=== PATIENT | male | born 2000 | race Caucasian/White ===

== ENCOUNTER 2020-03-30 11:44 | Emergency (ER) | payer OTHER ==
--- NOTE | 2020-03-30 12:31 | ED Physician Documentation ---
History of Present Illness - Stated complaint Stated Complaint: WEAKNESS - Chief complaint Chief Complaint: General - History obtained from History obtained from: Patient - Additonal information Additional information: 19-year-old male who is in the [employer] presents emerged department for 24 hours of generalized malaise feeling weak some diarrhea and gagging when he eats solid foods. He denies any fevers, cough chest pain. No focal abdominal tenderness. He is able to keep liquids down but is concerned because when he ate a bagel this morning he gagged. He is concerned that his electrolytes might be depleted and that he may need an IV infusion. denies pertinent pmh Review of Systems Constitutional: denies: Fever, Chills Eyes: reports: Reviewed and negative Ears: reports: Reviewed and negative Nose: reports: Reviewed and negative Throat: reports: Reviewed and negative Cardiac: reports: Reviewed and negative Respiratory: reports: Reviewed and negative GI: reports: Vomiting, Diarrhea. denies: Abdominal Pain, Nausea, Constipation, Hematemesis, Bloody / black stool : denies: Dysuria, Frequency, Hesitancy Skin: denies: Rash, Abrasion (s) Musculoskeletal: denies: Neck pain, Back pain Neurologic: reports: Reviewed and negative Psychiatric: reports: Reviewed and negative PD PAST MEDICAL HISTORY - Past Medical History Past Medical History: No - Present Medications Home Medications: Ambulatory Orders Medication Instructions Recorded Confirmed No Known Home Medications 03/30/20 03/30/20 - Allergies Allergies/Adverse Reactions: Allergies Allergy/AdvReac Type Severity Reaction Status Date / Time No Known Drug Allergies Allergy Verified 03/30/20 11:53 - Social History Does the pt smoke?: No Smoking Status: Never smoker PD ED PE NORMAL - General General: Alert and oriented X 3, No acute distress - HEENT HEENT: PERRL, Ears normal, Moist mucous membranes, Pharynx benign - Neck Neck: Supple, no meningeal sign, No adenopathy - Cardiac Cardiac: RRR, No murmur - Respiratory Respiratory: No respiratory distress, Clear bilaterally - Abdomen Abdomen: Normal bowel sounds, Soft, Non tender, Non distended - Back Back: No CVA TTP - Derm Derm: Normal color, Warm and dry, No rash - Neuro Neuro: Alert and oriented X 3, 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, No motor deficit, No sensory deficit Eye Opening: Spontaneous Motor: Obeys Commands Verbal: Oriented GCS Score: 15 Results - Vitals Vitals: Vital Signs - 24 hr 03/30/20 11:51 Temperature 36 C L Heart Rate 90 Respiratory 18 Rate Blood Pressure 144/90 H O2 Saturation 100 Oxygen O2 Source Room air PD MEDICAL DECISION MAKING - ED course Complexity details: reviewed results, re-evaluated patient, considered differential, d/w patient ED course: This is a well-appearing 19-year-old male presents the emergency department with 24 hours of fatigue, malaise a few watery stools and concerns that he might be electrolyte depleted. He is able to keep oral liquids down well but became concerned when he ate a bagel this morning and gagged. He does not have a sore throat and is Centor criteria is 0. Will defer strep testing. Cardiopulmonary exam is also unremarkable. No abdominal tenderness elicited. We discussed that the likely etiology of his symptoms is a viral enteritis. I did offer screening labs but felt that the yield on this would be relatively low. Patient ultimately declined. He was given about 500 mL of juice and water to drink in the emergency department which he did successfully. Recommend that he go home stay well-hydrated with liquids and in 24 hours to begin the brat diet if not improving he will return to the ER for a second look. COVID-19 screening is pending Departure - Departure Disposition: 01 Home, Self Care Clinical Impression: Malaise and fatigue Diarrhea Qualifiers: Diarrhea type: unspecified type Qualified Code(s): R19.7 - Diarrhea, unspecified Condition: Stable Record reviewed to determine appropriate education?: Yes Instructions: ED Diarrhea Viral, ED Diet Brat Expanded Comments: Fortino is we discussed the most likely cause of your fatigue, malaise and diarrhea is simply a viral gastroenteritis. In most otherwise healthy adults this resolves typically within 2 to 3 days. Because you are not vomiting when you drink liquids you can stay well-hydrated and make sure that your electrolytes remain normal simply by drinking Pedialyte or Gatorade mixed half with water. I do recommend that tomorrow morning you begin the BRAT diet as discussed. You have a Covid test pending. You need to self quarantine until the result is done and negative. Do not leave your house. Do not get near anybody. The results should be done in 48 to 72 hours. We will call with a positive result, the fastest way to get a negative result for confirmation though is to go to the hospital website at [email or web address], click on the my [facility] tab and sign up for the patient portal. If any friends or family get sick and would like to have a Covid test done, but do not have signs or symptoms that would necessitate being hospitalized, we encourage testing through our coronavirus swabbing station, call [phone] to schedule an appointment.
[2020-03-30 12:38] VITALS: BP 133/78
== END 2020-03-30 12:37 | disposition home or self-care (01) ==
LOC: ED 11:44
DX: R53.81 Other malaise (principal); R53.83 Other fatigue; Z20.822 Contact with and (suspected) exposure to COVID-19
CPT/HCPCS: 99283; 99284

== ENCOUNTER 2020-07-20 19:54 | Emergency (ER) | payer OTHER ==
[2020-07-20 20:38] LABS: BASOPHILS % (AUTO) 0.2 %; EOSINOPHILS % (AUTO) 0.1 %; HCT - HEMATOCRIT 53.1 % (42.0-52.0); HGB - HEMOGLOBIN 18.4 g/dL (14.0-18.0); LYMPHOCYTES % (AUTO) 5.7 %; MEAN CORPUSCULAR HEMOGLOBIN 30.9 pg (27.0-31.0); MEAN CORPUSCULAR HGB CONC 34.7 g/dL (32.0-36.0); MEAN CORPUSCULAR VOLUME 89.2 fL (80.0-94.0); MEAN PLATELET VOLUME 10.4 fL (7.4-11.4); MONOCYTES % (AUTO) 8.7 %; NEUTROPHILS % (AUTO) 84.9 %; PLT - PLATELET COUNT 377 10^3/uL (130-450); RED BLOOD COUNT 5.95 10^6/uL (4.70-6.10); RED CELL DISTRIBUTION WIDTH 12.9 % (12.0-15.0)
[2020-07-20 20:42] LABS: ABNORMAL LYMPHS % (MANUAL) 0 %
[2020-07-20 20:54] LABS: ALBUMIN 5.4 g/dL (3.2-5.5); ALBUMIN/GLOBULIN RATIO 1.3 (1.0-2.2); ALKALINE PHOSPHATASE 79 IU/L (42-121); ALT ALANINE AMINOTRANSFERASE 24 IU/L (10-60); AST ASPARTATE AMINOTRANSFERASE 30 IU/L (10-42); BILIRUBIN,TOTAL 1.2 mg/dL (0.2-1.0); BUN - BLOOD UREA NITROGEN 43 mg/dL (6-20); CALCIUM 10.2 mg/dL (8.5-10.3); CARBON DIOXIDE - CO2 22 mmol/L (21-32); CHLORIDE 95 mmol/L (101-111); CREATININE 1.4 mg/dL (0.6-1.2); ETOH - ETHANOL < 5.0 mg/dL; GFR - MDRD 64 (>89); GLUCOSE 140 mg/dL (70-100); LIPASE 17 U/L (22-51); POTASSIUM 4.9 mmol/L (3.5-5.0); SODIUM 138 mmol/L (135-145); TOTAL PROTEIN 9.5 g/dL (6.7-8.2)
--- OUTSIDE RECORDS SUMMARY | 2020-07-20 20:57 | EXTERNAL MEDICAL SUMMARY RPT | Continuity of Care Document ---
:2000 Demographics Phone Unavailable Preferred Language Unknown Marital Status Unknown Anabaptism Affiliation Unknown Race Unknown Ethnic Group Unknown Author Organization [facility] Address [address] [phone] Phone Allergies Encounters Medications Problems Results
[2020-07-20 21:13] LABS: BAND NEUTROPHILS % (MANUAL) 4 %; LYMPHOCYTES # (MANUAL) 1.3 10^3/uL (1.5-3.5); LYMPHOCYTES % (MANUAL) 8 %; MONOCYTES # (MANUAL) 1.4 10^3/uL (0.0-1.0); NEUTROPHILS # (MANUAL) 13.3 10^3/uL (1.5-6.6)
[2020-07-20] MEDS ORDERED: PROMETHAZINE INJ 25 MG in SODIUM CHLORIDE 0.9% 50 ML IV STA (21:13)
[2020-07-20] MEDS ORDERED: SODIUM CHLORIDE 0.9% 1,000 ML IV STA (21:13)
[2020-07-20] MEDS ORDERED: LACTATED RINGERS 1,000 ML IV STA (21:13)
[2020-07-20 21:14] LABS: DIFFERENTIAL COMMENT MANUAL DIFFERENTIAL; PLATELET ESTIMATE, MANUAL NORMAL (130-450,000) (NORMAL); PLATELET MORPHOLOGY NORMAL APPEARANCE (NORMAL); RBC MORPHOLOGY (MULTIPLE) NORMAL APPEARANCE (NORMAL); WBC MORPHOLOGY (MULTIPLE) 1+ TOXIC GRANULATION (NORMAL)
--- NOTE | 2020-07-20 21:15 | ED Physician Documentation ---
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 Had a Covid exposure last Thursday, tested negative to days later. Last night became acutely ill with vomiting and diarrhea. Some blood in the diarrhea. He has stomach cramps and today felt like his joints locked up and then had carpopedal spasms while feeling anxious with chest pain. He is otherwise healthy. No recent travel. Review of Systems Constitutional: reports: Chills, Sweats. denies: Fever Nose: denies: Rhinorrhea / runny nose Throat: reports: Sore throat Respiratory: denies: Dyspnea, Cough GI: reports: Abdominal Pain, Nausea, Vomiting, Diarrhea PD PAST MEDICAL HISTORY - Past Medical History Past Medical History: No - Past Surgical History Past Surgical History: No - Present Medications Home Medications: Ambulatory Orders Medication Instructions Recorded Confirmed Dicyclomine [Bentyl] 1 - 2 tab PO QID PRN #20 cap 07/20/20 Loperamide [Imodium] 2 mg PO QID PRN #10 cap 07/20/20 Ondansetron Odt [Zofran] 4 mg TL Q6H PRN #10 tablet 07/20/20 - Allergies Allergies/Adverse Reactions: Allergies Allergy/AdvReac Type Severity Reaction Status Date / Time No Known Drug Allergies Allergy Verified 07/20/20 20:14 - Social History Does the pt smoke?: No Smoking Status: Never smoker Does the pt drink ETOH?: Yes Does the pt have substance abuse?: No - Immunizations Immunizations are current?: Yes - POLST Patient has POLST: No PD ED PE NORMAL - Vitals Vital signs reviewed: Yes - General General: Alert and oriented X 3, Other (Appears anxious) - HEENT HEENT: PERRL, EOMI, Other (Cobblestoning in the back of the throat, tonsils are normal) - Neck Neck: Supple, no meningeal sign, No bony TTP, No bruit - Cardiac Cardiac: RRR, No murmur - Respiratory Respiratory: No respiratory distress, Clear bilaterally - Abdomen Abdomen: Normal bowel sounds, Soft, Non tender - Back Back: No CVA TTP, No spinal TTP - Derm Derm: Normal color, Warm and dry - Extremities Extremities: No edema, No calf tenderness / cord - Neuro Neuro: Alert and oriented X 3, Normal speech Results - Vitals Vitals: Vital Signs - 24 hr 07/20/20 07/20/20 07/20/20 20:08 21:00 23:00 Temperature 36.9 C Heart Rate 123 H 116 H 97 Respiratory 32 H 19 18 Rate Blood Pressure 129/92 H 126/75 164/56 H O2 Saturation 100 97 98 Oxygen O2 Source Room air - Labs Labs: Laboratory Tests 07/20/20 07/20/20 20:30 20:30 WBC 16.0 H RBC 5.95 Hgb 18.4 H Hct 53.1 H MCV 89.2 MCH 30.9 MCHC 34.7 RDW 12.9 Plt Count 377 MPV 10.4 Neut # (Auto) Not Reportable Lymph # (Auto) Not Reportable Bremer # (Auto) Not Reportable Eos # (Auto) Not Reportable Baso # (Auto) Not Reportable Absolute Nucleated RBC Not Reportable Total Counted 100 Band Neuts % (Manual) 4 Abnorm Lymph % (Manual) 0 Nucleated RBC % Not Reportable Neutrophils # (Manual) 13.3 H Lymphocytes # (Manual) 1.3 L Monocytes # (Manual) 1.4 H Eosinophils # (Manual) 0.0 Basophils # (Manual) 0.0 Differential Comment MANUAL DIFFERENTIAL WBC Morphology 1+ TOXIC GRANULATION Platelet Estimate NORMAL (130-450,000) Platelet Morphology NORMAL APPEARANCE RBC Morph Micro Appear NORMAL APPEARANCE Sodium 138 Potassium 4.9 Chloride 95 L Carbon Dioxide 22 Anion Gap 21.0 H BUN 43 H Creatinine 1.4 H Estimated GFR (MDRD) 64 L Glucose 140 H Calcium 10.2 Total Bilirubin 1.2 H AST 30 ALT 24 Alkaline Phosphatase 79 Total Protein 9.5 H Albumin 5.4 Globulin 4.1 Albumin/Globulin Ratio 1.3 Lipase 17 L Ethyl Alcohol < 5.0 PD MEDICAL DECISION MAKING - ED course ED course: 19-year-old gentleman with Covid exposure presents with vomiting and diarrhea since last night. Then he got panicky and developed carpopedal spasms. The abdominal exam is benign. He does have a leukocytosis but no evidence of bacterial illness on exam. He is quite dry and hemoconcentrated though. He is feeling much better after Phenergan from a nausea perspective and appeared calmer. This was followed by some Maalox. Given 2L IVF here. Close return precautions were given, repeat Covid test was also sent. Departure - Departure Disposition: 01 Home, Self Care Clinical Impression: Vomiting Qualifiers: Vomiting type: unspecified Vomiting Intractability: non-intractable Nausea presence: with nausea Qualified Code(s): R11.2 - Nausea with vomiting, unspecified Diarrhea Qualifiers: Diarrhea type: presumed infectious Qualified Code(s): R19.7 - Diarrhea, unspecified Condition: Good Record reviewed to determine appropriate education?: Yes Instructions: ED Nausea Vomiting Prescriptions: Dicyclomine [Bentyl] 1 - 2 tab PO QID PRN #20 cap PRN Reason: Abdominal Pain Loperamide [Imodium] 2 mg PO QID PRN #10 cap PRN Reason: Diarrhea Ondansetron Odt [Zofran] 4 mg TL Q6H PRN #10 tablet PRN Reason: Nausea / Vomiting Comments: As discussed this is most likely a viral syndrome that should be short-lived. I am prescribing some medications to help with the nausea and cramps. Return if worse or if not better in the next 24 hours. You have a Covid test pending. You need to self quarantine until the result is done and negative. Do not leave your house. Do not get near anybody. The results should be done in 48 to 72 hours. We will call with a positive result, the fastest way to get a negative result for confirmation though is to go to the hospital website at [email or web address], click on the my [facility] tab and sign up for the patient portal. If any friends or family get sick and would like to have a Covid test done, but do not have signs or symptoms that would necessitate being hospitalized, we encourage testing through our coronavirus swabbing station, call [phone] to schedule an appointment.
[2020-07-20] MEDS ORDERED: PROMETHAZINE 25 MG/1 ML VIAL ONE (21:23)
[2020-07-20] MEDS ORDERED: MAG HYDROX/AL HYDROX/SIMETH 30 ML UDC PO STA (21:55)
[2020-07-20 23:42] VITALS: BP 124/78
== END 2020-07-20 23:35 | disposition home or self-care (01) ==
LOC: ED 19:54
DX: R11.2 Nausea with vomiting, unspecified (principal); R19.7 Diarrhea, unspecified; D72.829 Elevated white blood cell count, unspecified; Z20.822 Contact with and (suspected) exposure to COVID-19
CPT/HCPCS: 36415; 80053; 80320; 83690; 85025; 87635; 96365; 99284; A9270; J7040; J7120

== ENCOUNTER 2020-09-20 02:23 | Emergency (ER) | payer OTHER ==
[2020-09-20 02:36] VITALS: BP 142/86
--- NOTE | 2020-09-20 03:12 | ED Physician Documentation ---
PD HPI HEAD INJURY - Stated complaint Stated Complaint: HEAD LAC/HEAD INJURY - Chief complaint Chief Complaint: Laceration - History obtained from History obtained from: Patient - History of Present Illness Mechanism of head injury: Fell Where head injury occurred: Home Timing - onset: How many hours ago (2) Pain level now: 0 Location of injury: Top Associated symptoms: No: LOC, AMS, Neck pain Contributing factors: Intoxicated. 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 he denies LOC, denies headache. he is UTD on tetanus. Review of Systems Skin: reports: Laceration (s) Musculoskeletal: denies: Neck pain Neurologic: reports: Head injury. denies: Headache, LOC PD PAST MEDICAL HISTORY - Past Medical History Past Medical History: No - Past Surgical History Past Surgical History: No - Present Medications Home Medications: Ambulatory Orders Medication Instructions Recorded Confirmed No Known Home Medications 09/20/20 09/20/20 - Allergies Allergies/Adverse Reactions: Allergies Allergy/AdvReac Type Severity Reaction Status Date / Time No Known Drug Allergies Allergy Verified 09/20/20 02:36 - Social History Does the pt smoke?: No Smoking Status: Never smoker Does the pt drink ETOH?: Yes ETOH Use: Beer Does the pt have substance abuse?: No - Immunizations Immunizations are current?: Yes - POLST Patient has POLST: No PD ED PE NORMAL - Vitals Vital signs reviewed: Yes - General General: Alert and oriented X 3, No acute distress, Well developed/nourished - HEENT HEENT: PERRL, EOMI - Neck Neck: No bony TTP PD ED PE EXPANDED - HEENT HEENT Visual: 1 - laceration (2 cm length laceration without bony tenderness) Results - Vitals Vitals: Oxygen O2 Source Room air Procedures - Laceration (location) Scalp Length in cm: 2 Wound type: Linear, Into subcut fat, Clean Anesthesia: Lidocaine 1%, With bicarb Wound preparation: Chlorhexadine, Irrigated copiously NS, Wound explored Skin layer closure: Mary Lou (4 mary lou placed) Other: Patient tolerated well, No complications, Tetanus UTD PD MEDICAL DECISION MAKING - ED course Complexity details: considered differential, d/w patient ED course: presents with scalp laceration after head injury, struck head against a wall after he lost balance upon standing from sitting position. Scalp laceration rep aired with mary lou and discharged home in NAD Departure - Departure Disposition: 01 Home, Self Care Clinical Impression: Laceration Condition: Good Instructions: ED Laceration Scalp Stitch Or Stap Follow-Up: SUSHMA SU MD [Primary Care Provider] - (one week for staple removal ) Discharge Date/Time: 09/20/20 03:49
[2020-09-20] MEDS ORDERED: BUFFERED LIDOCAINE 10 ML SYRINGE SUBQ STA (03:19)
[2020-09-20] MEDS ORDERED: BACITRACIN ZINC OINT 1 PACKET TOP STA (03:37)
== END 2020-09-20 03:49 | disposition home or self-care (01) ==
LOC: ED 02:23
DX: S01.01XA Laceration without foreign body of scalp, initial encounter (principal); W18.30XA Fall on same level, unspecified, initial encounter; W22.8XXA Striking against or struck by other objects, initial encounter; Y92.009 Unspecified place in unspecified non-institutional (private) residence as the place of occurrence of the external cause
CPT/HCPCS: 12001; 99281; 99282; A9270

== ENCOUNTER 2021-03-05 08:00 | Outpatient (CLI) | payer OTHER | END 2021-03-05 23:59 | LOC: LAB 08:00 | PROVIDERS: ATTEND Physician Assistant Medical | DX: U07.1 COVID-19 (principal) ==

== ENCOUNTER 2022-08-19 19:17 | Emergency (ER) | payer OTHER ==
--- NOTE | 2022-08-19 19:58 | ED Physician Documentation ---
PD HPI ABD PAIN - Stated complaint Stated Complaint: VOMIT/ABD PX - Chief complaint Chief Complaint: Abd Pain - History obtained from History obtained from: Patient - Additional information Additional information: Previously healthy 21-year-old gentleman got abruptly ill this morning with vomiting, diarrhea, abdominal and back pain. No known sick contacts or recent travel. No fever. No blood from either end. PD PAST MEDICAL HISTORY - Past Surgical History Past Surgical History: No - Present Medications Home Medications: Ambulatory Orders Medication Instructions Recorded Confirmed Loperamide [Imodium] 2 mg PO QID PRN #10 cap 08/19/22 Ondansetron Odt [Zofran] 4 mg TL Q6H PRN #10 tablet 08/19/22 - Allergies Allergies/Adverse Reactions: Allergies Allergy/AdvReac Type Severity Reaction Status Date / Time No Known Drug Allergies Allergy Verified 08/19/22 19:32 - Social History Does the pt smoke?: No Smoking Status: Never smoker Does the pt drink ETOH?: Yes Does the pt have substance abuse?: No - Immunizations Immunizations are current?: Yes - POLST Patient has POLST: No PD ED PE NORMAL - Vitals Vital signs reviewed: Yes - General General: Alert and oriented X 3, Other (He appears uncomfortable but nontoxic) - Cardiac Cardiac: RRR, No murmur - Respiratory Respiratory: No respiratory distress, Clear bilaterally - Abdomen Abdomen: Other (Hyperactive bowel sounds with mild tenderness, if anything most marked in the left lower quadrant. No surgical signs.) - Back Back: No spinal TTP - Derm Derm: No rash - Neuro Neuro: Alert and oriented X 3, Normal speech Results - Vitals Vitals: Vital Signs - 24 hr 08/19/22 19:28 Temperature 37.4 C Heart Rate 100 Respiratory 20 Rate Blood Pressure 127/69 O2 Saturation 98 Oxygen O2 Source Room air - Labs Labs: Laboratory Tests 08/19/22 08/19/22 08/19/22 19:40 20:01 20:01 WBC 8.8 RBC 5.57 Hgb 16.9 Hct 48.9 MCV 87.8 MCH 30.3 MCHC 34.6 RDW 12.3 Plt Count 289 MPV 9.2 Neut # (Auto) 7.8 H Lymph # (Auto) 0.3 L [place] # (Auto) 0.7 Eos # (Auto) 0.0 Baso # (Auto) 0.0 Absolute Nucleated RBC 0.00 Nucleated RBC % 0.0 Sodium 136 Potassium 4.0 Chloride 106 Carbon Dioxide 16 L Anion Gap 14.0 H BUN 21 H Creatinine 0.9 Estimated GFR (MDRD) 105 Glucose 124 H Calcium 9.2 Total Bilirubin 1.3 H AST 24 ALT 25 Alkaline Phosphatase 67 Total Protein 8.6 H Albumin 4.8 Globulin 3.8 Albumin/Globulin Ratio 1.3 Lipase 24 Urine Color YELLOW Urine Clarity CLEAR Urine pH 5.5 Ur Specific [place] >=1.030 H Urine Protein NEGATIVE Urine Glucose (UA) NEGATIVE Urine Ketones 15 H Urine Occult Blood NEGATIVE Urine Nitrite NEGATIVE Urine Bilirubin NEGATIVE Urine Urobilinogen 0.2 (NORMAL) Ur Leukocyte Esterase NEGATIVE Ur Microscopic Review NOT INDICATED Urine Culture Comments NOT INDICATED Urine Opiates Screen NEGATIVE Ur Oxycodone Screen NEGATIVE Urine Methadone Screen NEGATIVE Ur Propoxyphene Screen NEGATIVE Ur Barbiturates Screen NEGATIVE Ur Tricyclics Screen NEGATIVE Ur Phencyclidine Scrn NEGATIVE Ur Amphetamine Screen NEGATIVE U Methamphetamines Scrn NEGATIVE U Benzodiazepines Scrn NEGATIVE Urine Cocaine Screen NEGATIVE U Cannabinoids Screen NEGATIVE PD Medical Decision Making - ED course ED course: 21-year-old gentleman with syndrome consistent with viral gastroenteritis. After the administration of IV fluids, Reglan, Toradol, and Imodium he felt much better. Review of lab work showed normal CBC. CMP showing low bicarb consistent with dehydration, urinalysis with some small ketones and high specific gravity, also consistent with dehydration. He passed a p.o. challenge here. Departure - Departure Disposition: 01 Home, Self Care Clinical Impression: Gastroenteritis Condition: Good Record reviewed to determine appropriate education?: Yes Instructions: ED Gastroenteritis Viral Prescriptions: Loperamide [Imodium] 2 mg PO QID PRN #10 cap PRN Reason: Diarrhea Ondansetron Odt [Zofran] 4 mg TL Q6H PRN #10 tablet PRN Reason: Nausea / Vomiting Comments: Return in 24 hours if not better, anytime if worse. Forms: Activity restrictions
[2022-08-19 20:06] LABS: BASOPHILS % (AUTO) 0.3 %; HCT - HEMATOCRIT 48.9 % (42.0-52.0); HGB - HEMOGLOBIN 16.9 g/dL (14.0-18.0); LYMPHOCYTES # (AUTO) 0.3 10^3/uL (1.5-3.5); LYMPHOCYTES % (AUTO) 3.3 %; MEAN CORPUSCULAR HEMOGLOBIN 30.3 pg (27.0-31.0); MEAN CORPUSCULAR HGB CONC 34.6 g/dL (32.0-36.0); MEAN CORPUSCULAR VOLUME 87.8 fL (80.0-94.0); MEAN PLATELET VOLUME 9.2 fL (7.4-11.4); MONOCYTES # (AUTO) 0.7 10^3/uL (0.0-1.0); MONOCYTES % (AUTO) 7.7 %; NEUTROPHILS # (AUTO) 7.8 10^3/uL (1.5-6.6); NEUTROPHILS % (AUTO) 88.6 %; PLT - PLATELET COUNT 289 10^3/uL (130-450); RED BLOOD COUNT 5.57 10^6/uL (4.70-6.10); RED CELL DISTRIBUTION WIDTH 12.3 % (12.0-15.0); WHITE BLOOD COUNT 8.8 x10^3/uL (4.8-10.8)
[2022-08-19 20:12] LABS: MUDS CUTOFF CONCENTRATIONS CUTOFF CONC BELOW:
[2022-08-19 20:17] LABS: BILIRUBIN,URINE NEGATIVE (NEGATIVE); GLUCOSE, URINE (UA) NEGATIVE (NEGATIVE); KETONES,URINE (UA) 15 mg/dL (NEGATIVE); LEUKOCYTE ESTERASE, URINE NEGATIVE (NEGATIVE); NITRITE,URINE NEGATIVE (NEGATIVE); OCCULT BLOOD,URINE NEGATIVE (NEGATIVE); PH,URINE 5.5 PH (5.0-7.5); PROTEIN,URINE NEGATIVE (NEGATIVE); UROBILINOGEN,URINE 0.2 (NORMAL) E.U./dL (NORMAL)
[2022-08-19 20:18] LABS: ALBUMIN 4.8 g/dL (3.2-5.5); ALBUMIN/GLOBULIN RATIO 1.3 (1.0-2.2); BILIRUBIN,TOTAL 1.3 mg/dL (0.2-1.0); CALCIUM 9.2 mg/dL (8.5-10.3); CREATININE 0.9 mg/dL (0.6-1.2); TOTAL PROTEIN 8.6 g/dL (6.7-8.2)
[2022-08-19 20:18] LABS: CLARITY,URINE CLEAR (CLEAR)
[2022-08-19] MEDS: SODIUM CHLORIDE 0.9% 1,000 ML IV STA (20:24)
[2022-08-19] MEDS: KETOROLAC 15 MG/ML VIAL IVP STA (20:24)
[2022-08-19] MEDS: METOCLOPRAMIDE 10 MG/2 ML VIAL IVP STA (20:24)
[2022-08-19 20:27] LABS: AMPHETAMINE SCREEN,URINE NEGATIVE (NEGATIVE); BARBITURATE SCREEN,UR NEGATIVE (NEGATIVE); BENZODIAZEPINES SCREEN, URINE NEGATIVE (NEGATIVE); COCAINE SCREEN URINE NEGATIVE (NEGATIVE); METHADONE SCREEN, URINE NEGATIVE (NEGATIVE); METHAMPHETAMINES SCREEN, URINE NEGATIVE (NEGATIVE); OPIATE SCREEN, URINE NEGATIVE (NEGATIVE); OXYCODONE SCREEN, URINE NEGATIVE (NEGATIVE); PROPOXYPHENE SCREEN, URINE NEGATIVE (NEGATIVE); THC CANNABINOID SCREEN, URINE NEGATIVE (NEGATIVE); TRICYCLIC ANTIDEPRESSANT,URINE NEGATIVE (NEGATIVE)
[2022-08-19] MEDS: LOPERAMIDE 2 MG CAPSULE PO STA (20:47)
[2022-08-19] MEDS: ONDANSETRON ODT 4 MG Prepack 2 TL STA (21:30)
[2022-08-19 21:42] VITALS: BP 116/69
== END 2022-08-19 21:38 | disposition home or self-care (01) ==
LOC: ED 19:17
DX: K52.9 Noninfective gastroenteritis and colitis, unspecified (principal)
CPT/HCPCS: 36415; 80053; 80306; 81001; 81003; 83690; 85025; 87086; 96374; 99283